=== PATIENT | female | born 1970 | race Caucasian/White ===

== ENCOUNTER 2023-07-17 11:18 | Emergency (ER) | payer BC, OTHER ==
[~2023-07-17] VITALS: Ht 154.9 cm; Wt 59.0 kg
[2023-07-17 11:55] VITALS: O2SAT 99
[2023-07-17] MEDS ORDERED: TETRACAINE HCL 0.5% OPHT DROP 2 ML BOTTLE ONE (12:07)
[2023-07-17] MEDS ORDERED: FLUORESCEIN SODIUM 1 MG STRIP ONE (12:08)
[2023-07-17] MEDS ORDERED: TETRACAINE HCL 0.5% OPHT DROP 2 ML BOTTLE OP ONE (12:15)
[2023-07-17] MEDS ORDERED: FLUORESCEIN SODIUM 1 MG STRIP OP ONE (12:15)
[2023-07-17] MEDS ORDERED: ERYT3.5O24 RIGHTEYE (12:32)
== END 2023-07-17 12:48 | disposition home or self-care (01) ==
LOC: ER 11:18
DX: H10.89 Other conjunctivitis (principal); Z79.2 Long term (current) use of antibiotics
CPT/HCPCS: A4663

== ENCOUNTER 2024-06-10 06:51 | Day surgery (SDC) | payer BC, OTHER ==
[~2024-06-10 06:51] MED LIST: ERYT3.5O24 RIGHTEYE
[2024-06-10] MEDS ORDERED: PROPOFOL 200 MG/20 ML BOTTLE ONE (08:15)
[2024-06-10 11:00] VITALS: TEMP 97.4
== END 2024-06-10 11:00 | disposition home or self-care (01) ==
LOC: DS 06:51
PROVIDERS: ATTEND Surgery
DX: R19.4 Change in bowel habit (principal); K30 Functional dyspepsia; K21.9 Gastro-esophageal reflux disease without esophagitis; K44.9 Diaphragmatic hernia without obstruction or gangrene; K64.8 Other hemorrhoids; K29.80 Duodenitis without bleeding; I10 Essential (primary) hypertension; E78.5 Hyperlipidemia, unspecified; F41.9 Anxiety disorder, unspecified; Z98.51 Tubal ligation status; Z98.890 Other specified postprocedural states; Z79.899 Other long term (current) drug therapy
CPT/HCPCS: 88313-TC; 88342; A4663; J3490; J7120